=== PATIENT | male | born 1980 | race Caucasian/White ===

== ENCOUNTER 2023-06-09 16:07 | Emergency (ER) | payer OTHER, SELFPAY ==
[2023-06-09] VITALS (7 sets, daily range): BP systolic 113–158; BP diastolic 49–109; PULSE 117–130; RESP 18–38; TEMP 36.8–37.1; O2SAT 94–100
--- NOTE | ~2023-06-09 | CT_ITS ---
EXAMINATION: CT abdomen pelvis w con DATE: 06/09/2023 19:55 INDICATION: Cyst/abscess rectum. Scrotal swelling for 5 days. TECHNIQUE: Computed tomography (CT) of the abdomen and pelvis was performed with 100 CC Omnipaque 350 intravenous contrast. Automated exposure control and iterative reconstruction technique were employe d. Exam dose: 3373.68 mGy-cm total exam DLP. COMPARISON: None. FINDINGS: The lung bases are clear of consolidation. Normal heart size. Trace pericardial fluid. No p leural effusion. The gallbladder is present. No bile duct or pancreatic duct dilatation. Diffuse hepatic steatosis. No hepatic, splenic, pancreatic, and adrenal or right renal space-occupyin g mass lesion is detected. There is an indeterminate approximately 1 cm hypoenhancing lesion of the posterolateral mid left kidn ey. Another approximately 8 mm indeterminate hypoattenuating lesion of the lower pole of left kidney is noted. No urinary tract calculus or hydroureteronephrosis. The urinary bladder is unremarkable. Minimal pros alonso calcification. There is mild subcutaneous emphysema in the left and mid perineal area. No bowel obstruction is evident. No bowel wall thickening, pneumatosis or intraperitoneal free air. N o evidence of appendicitis. Normal caliber of the abdominal aorta. No intraperitoneal or retroperitoneal or pelvic mass lesion or adenopathy or ascites. No suspicious osteolytic or osteoblastic lesions are noted. IMPRESSION: Mild subcutaneous emphysema in the mid and left perineal area Hepatic steatosis 2 nonspecific 1 cm or smaller hypoattenuating lesions of the left kidney; consider follow up CT abdom en examination in 6 months Reviewed, dictated and finalized at [facility]. Reviewed, dictated and finalized at [facility]. IMPRESSION: Mild subcutaneous emphysema in the mid and left perineal area Hepatic steatosis 2 nonspecific 1 cm or smaller hypoattenuating lesions of the left kidney; consi maria alejandra follow up CT abdomen examination in 6 months
--- NOTE | 2023-06-09 19:01 | ED.SKABFB ---
HPI - Skin/Abscess/Foreign Bdy General Chief complaint: Skin/Abscess/Foreign Body Stated complaint: rectal cyst and enlarged scrotum Time Seen by Provider: 06/09/23 18:52 History of Present Illness HPI narrative: patient is a 42-year-old male with history of diabetes here with scrotal swelling and rectal pain. Patient states that 5 days ago he began noticing some perirectal swelling. He notes that it is progressively increased and now progressed to involve his entire scrotum with scrotal swelling and redness. Pain is severe, worse with any pressure on the area. He waited to get into his primary care doctor today who he notes took 1 look at his groin and referred him into the emergency department. He denies fever chills. He denies any usual scrotal swelling. He does not regularly check his blood sugars, is unsure if he has been having increased blood sugars. Does not have any discharge from the area. Denies dysuria. Related Data Allergies Allergy/AdvReac Type Severity Reaction Status Date / Time No Known Allergies Allergy Verified 06/09/23 16:08 Review of Systems Review of Systems: CONSTITUTIONAL: Denies fever, chills, or sweats. EYES: Denies visual changes, redness, or discharge. ENT: Denies rhinorrhea, congestion, sore throat, or otalgia. CARDIOVASCULAR: Denies chest pain, palpitations RESPIRATORY: Denies cough or dyspnea. GASTROINTESTINAL: Denies abdominal pain, nausea, vomiting GENITOURINARY: Denies dysuria or hematuria. Scrotal swelling, perianal swelling. SKIN: Denies rash or itching. MUSCULOSKELETAL: Denies back pain, joint pain, or myalgia. NEUROLOGIC: Denies headache, numbness, or weakness. Exam Narrative: GENERAL: Well-appearing, well-nourished, and in no acute distress. HEAD: Normocephalic, atraumatic. EYES: PERRLA and EOMI. ENT: Nares clear. Mucous membranes moist. NECK: Supple. CHEST: Clear to auscultation. No respiratory distress. HEART: Regular rate and rhythm. Normal peripheral pulses. ABDOMEN: Soft, nontender, nondistended. : exam performed with RN as admission nurse. Patient has baseball sized swelling and erythema over the perineal area with extension of the erythema into the scrotum. Scrotum is enlarged, the size of approximately 2 softballs. No crepitus, no blistering. EXTREMITIES: Normal range of motion. No edema. SKIN: Warm, dry, no rash. As above in . NEURO: No focal deficits. Alert and oriented x3. PSYCH: Normal mood and affect. Course Course Emergency Course: Chart review performed. Patient reportedly here with abscess in rectal area with scrotal swelling, unable to sit x5 days. HR 130, normotensive, afebrile. No prior visits in our system. 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 Will touch base with our urology team here but anticipate he will likely need to be transferred. Basic lab work ordered as well as IV fluids and patient made NPO. Told patient of likely diagnosis and need for transfer. Ordered vancomycin, Zosyn, clindamycin. Morphine ordered for pain. Spoke with Dr. Metz, administrative professional for urology, recommends transfer to higher level of care, likely [facility]. Patient emergently going down for CT. WBC of 30.4, Lactic of 3.9, Sodium 127, Chloride 92, Glucose 305, Creatinine 0.7. Spoke with [facility] transfer [facility], they will get ahold of Urology and call back regarding transfer. Spoke with Dr. Weinstein, urologist at [facility]. Recommends emergent debridement on site here and transfer to [facility] post operatively as needed for additional care. Discussed case with our on-call urology again, not intervention here due to lack of support. Recommends attempt at transfer to [facility] system. Will call transfer center. Spoke with Dr. Langley, urology at [facility], recommends ED to ED transfer, transfer center to contact ED and call us back. Patient accepted for transfer to [facility], ED to ED, spoke with Dr. Hull to accepts patient. Vital Signs Vital signs: Vital Signs Temperatur
[2023-06-09 19:15] LABS: Hematocrit 45.1 % (42.0-52.0); Mean Corpuscular HGB Conc 33.3 g/dl (32-36); Mean Corpuscular Hemoglobin 28.6 pg (26-34); Mean Corpuscular Volume 86.1 fl (80-100); Mean Platelet Volume 10.6 fl (7.4-10.4); Platelet Count Result 315 k/mm3 (150-375); Red Blood Count 5.24 M/mm3 (4.6-6.20); Red Cell Distribution Width 13.2 % (11.5-14.5); White Blood Count 30.4 K/mm3 (4.5-10.0)
[2023-06-09 19:25] LABS: Alanine Aminotransferase 25 U/L (6-50); Albumin Level 3.9 g/dL (3.5-5.1); Alkaline Phosphatase 184 U/L (38-126); Anion Gap 15 mmol/L (8-16); Aspartate Amino Transferase 29 U/L (17-59); Bilirubin,Total 1.7 mg/dL (0.2-1.3); Blood Urea Nitrogen 10 mg/dL (9-20); Calcium 9.2 mg/dL (8.4-10.2); Carbon Dioxide 20 mmol/L (22-30); Chloride 92 mmol/L (98-107); Estimated Glomerular Filt Rate > 60; Glucose 305 mg/dL (65-110); Potassium 4.1 mmol/L (3.4-5.0); Sodium 127 mmol/L (137-145)
[2023-06-09] MEDS: MORPHINE SULFATE (*CRX) 4 MG/ML INJ IV PUSH (19:35)
[2023-06-09] MEDS: ONDANSETRON INJ 4 MG/2 ML VIAL IV PUSH (19:36)
[2023-06-09 19:38] LABS: Band Neutrophils Percent 5 % (0-6); Monocytes Absolute Manual 0.91 K/mm3 (0.1-0.90); Monocytes Percent Manual 3 % (3-9); Neutrophils Absolute Manual 28.88 K/mm3 (1.3-6.7); Neutrophils Percent Manual 90 % (46-73); Platelet Estimate Adequate (Adequate); Total Cells Counted 100
[2023-06-09 19:39] LABS: Schistocytes None Seen (NORMAL)
[2023-06-09] MEDS: PIPERACILLIN/TAZ 4.5G/NS 100ML 4.5 GM/100 ML BAG IVPB (20:02)
[2023-06-09 20:10] LABS: INR 1.2; Prothrombin Time 15.9 Seconds (11.1-14.7)
[2023-06-09 20:12] LABS: Partial Thromboplastin Time 31.9 SECONDS (22.3-36.8)
[2023-06-09 20:18] LABS: Alanine Aminotransferase 26 U/L (6-50); Albumin Level 3.9 g/dL (3.5-5.1); Alkaline Phosphatase 187 U/L (38-126); Anion Gap 16 mmol/L (8-16); Aspartate Amino Transferase 32 U/L (17-59); Bilirubin,Total 1.7 mg/dL (0.2-1.3); Blood Urea Nitrogen 10 mg/dL (9-20); Calcium 9.3 mg/dL (8.4-10.2); Carbon Dioxide 19 mmol/L (22-30); Chloride 91 mmol/L (98-107); Estimated Glomerular Filt Rate > 60; Glucose 305 mg/dL (65-110); Magnesium 1.8 mg/dL (1.6-2.3); Sodium 126 mmol/L (137-145)
[2023-06-09] MEDS: LACTATED RINGERS 1,000 ML 999 ML IV CONT (20:28)
[2023-06-09] MEDS: CLINDAMYCIN 900 MG/D5W 50 ML 900 MG/50 ML PIGGYBACK 50 MG IVPB (20:29)
[2023-06-09 20:38] LABS: Appearance Urine Clear (Clear); Bacteria Urine Rare /hpf; Bilirubin Urine Negative (Negative); Blood Urine 1+ (Negative); Budding Yeast Urine Present /hpf; Color Urine Yellow (Yellow); Glucose Urine UA 3+ mg/dL (Negative); Hyaline Casts Urine Present /lpf; Ketones Urine 4+ mg/dL (Negative); Leukocyte Esterase Ur Negative LEU/UL (Negative); Need Manual Microscopic Reviewed; Nitrate Urine Negative (Negative); Non Pathogenic Casts 0-2; Protein Urine 2+ mg/dL (Negative); Specific Grav Ur 1.034 (1.001-1.035); Squamous Epithelial Cell Urine None seen /hpf (Few); WBC Urine 21-50 /hpf
[2023-06-09 20:42] LABS: Add Urine Microscopic? YES
[2023-06-09 20:49] LABS: CRP 36.6 mg/dL (<1.0)
[2023-06-09] MEDS: HYDROmorphone HCL INJ (*CRX) 1 MG/ML SYR IV PUSH (21:43)
[2023-06-09 22:54] LABS: Reflex Lactic Acid Yes or No Add Lactic
== END 2023-06-09 23:30 | disposition short-term general hospital (02) ==
PROVIDERS: Emergency Provider Student in an Organized Health Care Education/Training Program
DX: N49.3 Fournier gangrene (principal); A41.9 Sepsis, unspecified organism; N28.9 Disorder of kidney and ureter, unspecified; K76.0 Fatty (change of) liver, not elsewhere classified
CPT/HCPCS: 36415; 74177; 80053; 81001; 83605; 83735; 85025; 85610; 85730; 86140; 87040; 87086; 87088; 96365; 96367; 96375; 99285; J1170; J2270; J2405; J2543; J7120; Q9967